=== PATIENT | male | born 1980 | race Two or more races ===

== ENCOUNTER 2018-01-21 11:24 | Emergency (ER) | payer MEDICAID ==
[~2018-01-21] VITALS: Ht 180.3 cm; Wt 97.0 kg
[2018-01-21 15:19] VITALS: BP 136/81
== END 2018-01-21 15:47 | disposition home or self-care (01) ==
LOC: ER 13:12
DX: G47.00 Insomnia, unspecified (principal); F10.239 Alcohol dependence with withdrawal, unspecified; M25.512 Pain in left shoulder; F41.9 Anxiety disorder, unspecified; Y90.9 Presence of alcohol in blood, level not specified
CPT/HCPCS: 99283